=== PATIENT | male | born 1955 | race Caucasian/White ===

== ENCOUNTER → 2020-07-03 14:21 | Outpatient (BNVA) | payer OTHER, SELFPAY | PROVIDERS: Visit Provider Orthopaedic Surgery | DX: Z20.828 Contact with and (suspected) exposure to other viral communicable diseases (principal); L02.511 Cutaneous abscess of right hand; M47.816 Spondylosis without myelopathy or radiculopathy, lumbar region; M25.541 Pain in joints of right hand | CPT/HCPCS: 73130; 87070; 87075; 87077; 87184; 87205; 87635 ==

== ENCOUNTER → 2020-07-03 14:28 | Outpatient (BNVA) | payer SELFPAY | PROVIDERS: Visit Provider Orthopaedic Surgery | DX: Z01.89 Encounter for other specified special examinations (principal) | CPT/HCPCS: 87070; 87075; 87205 ==

== ENCOUNTER 2020-07-04 10:01 | Day surgery (SDC) | payer SELFPAY ==
[2020-07-03 17:53] VITALS: BMI 31.1
[2020-07-04] VITALS (9 sets, daily range): BP systolic 116–138; BP diastolic 76–87; PULSE 77–86; RESP 16–18; TEMP 36.4–37.1; O2SAT 96–99
--- NOTE | 2020-07-04 10:42 | ANES.PREANE2 ---
Pre-Anesthetic Assessment Pre-Anesthetic Assessment: Height/Weight: Height 1.88 m Weight 110.223 kg Preop Diagnosis: Abcess right thumb Proposed Procedure: Operation Date: 07/04/20 12:10 Proposed Procedures p Incision & Drainage of finger abscess, complicated 83518 L02.511(Not Applicable) - Frank Florian MD Familial anesthetic complications: trouble waking up Was Beta Sarah taken within 24 hours: N/A Last intake: Intake Last Liquid Date 07/03/20 Last Liquid Time 21:00 Last Solid Date 07/03/20 Last Solid Time 21:00 Social: Social History: No alcohol and No tobacco Exam: Pre-Anes Outpt Exam: alert, oriented x 3, clear to auscultation bilaterally and regular rate & rhythm Airway: Cervical ROM: WNL MP: 1 Dentition: Full Anesthetic Plan: ASA status: 1 Anesthesia: General Risk of > 500 ml blood loss (7ml/kg in children): No PFSH Anesthesia PFSH: Social History Smoking and tobacco status: never smoked Second hand smoke exposure: No Smoking risk assessment/counseling performed?: No Alcohol intake: never Desire information about alcohol rehabilitation?: No Counseling given: No Desire information about substance/drug rehabilitation?: No Counseling given: No Adopted: No Caregiver/support person: No Lives independently: Yes Household members: spouse Housing: House Marital status: Number of children: 4 Highest education level completed: Associate Degree: Occupational, Technical, Vocational Program service: No Current occupational status: retired Data Anesthesia Cardiac Studies: No Data to Display
[2020-07-04] MEDS: fentaNYL 50 mcg/mL INJ 2mL 25 MCG IVP (15:13)
--- NOTE | 2020-07-04 15:16 | W.PM.OPSUD ---
Surgery/Procedure H&P Update DATE OF PROCEDURE: July 04, 2020 DATE H&P PERFORMED: 07/03/20 PREOP DIAGNOSIS: Abcess right thumb PLANNED PROCEDURE: Operation Date: 07/04/20 12:10 Proposed Procedures p Incision & Drainage of finger abscess, complicated 17010 L02.511(Not Applicable) - Frank Florian MD
--- NOTE | 2020-07-04 18:11 | P.OP_ITS ---
Operative Report Date of procedure: July 04, 2020 Pre-op Diagnosis: Abcess right thumb Post-op diagnosis: same Post-op Findings: Patient had abscess beneath the right thumbnail extending under his proximal right nail fold. He had exposed distal phalanx over the dorsal ulnar nailbed Procedure Done: Irrigation and debridement deep abscess right thumb Pathology: none sent Pathology: Routine and anaerobic cultures of apparently material from the nailbed were sent Surgeon: Frank Florian Anesthesia: General Estimated blood loss (mL): 2 Complications: None Findings: The patient was noted to have a necrotic abscess beneath the nail of his right thumb extension proximally under the nail fold. He had area of full- thickness loss of the dorsal ulnar nailbed with exposed dorsal bone Procedure: The patient was taken to the operating room and given a general anesthesia. His right upper extremity was prepped and draped in the usual fashion. Initially the nail was examined revealing abrasion between an underlying nailbed and expressible pus beneath the nail. Utilizing hemostat the nail was easily elevated off the bed and removed from the proximal nail fold. Cultures of the deep abscess were obtained. The area of the nailbed and beneath the proximal nail fold were debrided with saline and antibiotic solution. They were then dressed with Neosporin 4 x 4's and a compressive Gene wrap. He was extubated taken recovery room in stable condition.
[2020-07-04] MEDS: fentaNYL 50 mcg/mL INJ 2mL IVP ×2 (18:17→18:22)
[2020-07-04] MEDS: neomycin-poly-bacitracin oint 28 gm 1 APPLIC TOPICAL (18:23)
--- NOTE | 2020-07-04 19:03 | ANE.PACU2 ---
Inpatient post-anesthesia follow up: Airway intact: Yes Vital signs: Temperature 98.7 F Pulse Rate 82 Respiratory Rate 18 Blood Pressure 127/87 Pulse Oximetry 98 Oxygen Delivery Me thod Room Air Oxygen Flow Rate 8 Fraction of Inspir ed Oxygen Hydration adequate: Yes Nausea and vomiting: No Pain level: 4 Mental status: Baseline
== END 2020-07-04 19:07 | disposition home or self-care (01) ==
PROVIDERS: Visit Provider Orthopaedic Surgery
PROC: (CPT 10060; principal; 2020-07-04 12:00)
DX: L02.511 Cutaneous abscess of right hand (principal)
CPT/HCPCS: 10060; 12345; 87070; 87075; 87077; 87186; 87205; J0131; J0330; J1580; J2405; J2704; J2765; J3010; J3490

== ENCOUNTER → 2021-07-31 11:46 | Outpatient (BNVA) | payer MEDICARE, SELFPAY | PROVIDERS: Visit Provider Nurse Practitioner Family | DX: J06.9 Acute upper respiratory infection, unspecified (principal); Z20.828 Contact with and (suspected) exposure to other viral communicable diseases; R05.9 Cough, unspecified | CPT/HCPCS: 87400; 87635 ==

== ENCOUNTER 2021-08-05 20:00 | Outpatient (CLI) | payer MEDICARE, SELFPAY | END 2021-08-05 20:01 | disposition home or self-care (01) | LOC: SLEEP 08-06 08:37 | PROVIDERS: Visit Provider Internal Medicine | DX: G47.10 Hypersomnia, unspecified (principal); R53.83 Other fatigue; R06.83 Snoring; G47.33 Obstructive sleep apnea (adult) (pediatric) | CPT/HCPCS: 95810 ==

== ENCOUNTER 2021-10-27 20:00 | Outpatient (CLI) | payer MEDICARE, SELFPAY | END 2021-10-27 20:01 | disposition home or self-care (01) | LOC: SLEEP 10-28 02:35 | PROVIDERS: Visit Provider Internal Medicine | DX: G47.33 Obstructive sleep apnea (adult) (pediatric) (principal) | CPT/HCPCS: 95811 ==

== ENCOUNTER → 2022-06-29 08:46 | Outpatient (BNVA) | payer MEDICARE, OTHER, SELFPAY | PROVIDERS: PCP Internal Medicine; Visit Provider Nurse Practitioner Family | DX: J02.9 Acute pharyngitis, unspecified (principal); J03.00 Acute streptococcal tonsillitis, unspecified | CPT/HCPCS: 87880 ==

== ENCOUNTER → 2022-12-02 13:12 | Outpatient (BNVA) | payer MEDICARE, OTHER, SELFPAY | PROVIDERS: PCP Internal Medicine; Visit Provider Nurse Practitioner Family | DX: R30.0 Dysuria (principal) | CPT/HCPCS: 81000 ==

== ENCOUNTER → 2022-12-09 11:02 | Outpatient (BNVA) | payer MEDICARE, OTHER, SELFPAY | PROVIDERS: PCP Internal Medicine; Visit Provider Nurse Practitioner Family | DX: N39.0 Urinary tract infection, site not specified (principal) | CPT/HCPCS: 81000 ==

== ENCOUNTER 2022-12-31 08:28 | Outpatient (CLI) | payer MEDICARE, OTHER, SELFPAY ==
[2022-12-31] MEDS: iohexol 350 mg/mL 500 mL Btl (per mL) PO (09:15)
[2022-12-31] MEDS: iohexol 350 mg/mL 500 mL Btl (per mL) IV (09:15)
--- NOTE | 2022-12-31 10:00 | CT_ITS ---
WS: [id number] CT ABDOMEN AND PELVIS WITH CONTRAST HISTORY: R35.1 - Nocturia TECHNIQUE: Imaging performed of the abdomen and pelvis with IV contrast. Single phase imaging of the abdomen. Coronal and sagittal reformats are submitted. All CT scans at [facility] use at [address] one of these dose optimization techniques: automated exposure control; mA and/or kV adjustment per patient size (includes targeted exams where dose is matched to clinical indication); or iterative re construction. IV CONTRAST: Omnipaque 350; 100 mL IV. Oral contrast: Yes. DLP: 758.99 mGy.cm COMPARISON: None available. Lower thorax: Micronodule subpleural LEFT lower lobe. No mass or pneumonia. Heart is normal size. Ext ensive contiguous calcifications in the LEFT anterior descending and circumflex coronary artery. No h iatal hernia. Liver/biliary system: Normal size with no intrahepatic dilatation. Indeterminate 3 mm low-attenuation nodule RIGHT lobe of the liver. No intrahepatic dilatation. Gallbladder: Normal. No gallstones or wall thickening. No pericholecystic fluid. Pancreas: Normal size pancreas and pancreatic duct. No adjacent inflammation. Spleen: Normal size spleen. No mass or infarct. Adrenal glands: Normal. Right kidney: Normal size kidney. 5 mm low-attenuation cortical mass is too small to characterize. Ad ditional 13 mm posterior cortical mass is probably a small cyst. No obstruction. Left kidney: Normal. Aorta: Normal. Lymphadenopathy: None. Free fluid: None. GI tract: Normally distended stomach. No small bowel obstruction. No colonic mass. No appendicitis. N ormal appendix. Mild diverticular burden in the distal colon. Abdominal wall: Unremarkable abdominal wall. No hernia. Pelvis: No free fluid or adenopathy within the pelvis. Prostate gland is very mildly enlarged. Flakito us central prostate gland calcifications. Bones: Moderate degenerative disc space narrowing at L4-5. CT/CT abdomen pelvis w con* [id number] IMPRESSION: 1. No acute abdominal or pelvic abnormalities. 2. Negative urinary bladder. 3. Mild prostate gland enlargement with central calcifications. 4. Mild distal colonic diverticular disease without acute diverticulitis. 5. Small low-attenuation lesions in the RIGHT kidney are probably cysts. Too s mall to completely characterize. 6. Normal appendix.
== END 2022-12-31 08:29 | disposition home or self-care (01) ==
LOC: RAD 08:32
PROVIDERS: PCP Internal Medicine; Visit Provider Nurse Practitioner Family
DX: R10.2 Pelvic and perineal pain (principal); R31.9 Hematuria, unspecified; R35.0 Frequency of micturition; R35.1 Nocturia; N40.0 Benign prostatic hyperplasia without lower urinary tract symptoms; K57.30 Diverticulosis of large intestine without perforation or abscess without bleeding
CPT/HCPCS: 74177; 80053; 81000; 84153; 85025; Q9967

== ENCOUNTER → 2023-04-28 07:56 | Outpatient (BNVA) | payer MEDICARE, OTHER, SELFPAY | PROVIDERS: PCP Internal Medicine; Visit Provider Nurse Practitioner Family | DX: R39.9 Unspecified symptoms and signs involving the genitourinary system (principal); N30.01 Acute cystitis with hematuria; K21.9 Gastro-esophageal reflux disease without esophagitis | CPT/HCPCS: 81000 ==

== ENCOUNTER → 2023-05-06 08:24 | Outpatient (BNVA) | payer MEDICARE, OTHER, SELFPAY | PROVIDERS: PCP Internal Medicine; Visit Provider Nurse Practitioner Family | DX: R30.0 Dysuria (principal); N40.0 Benign prostatic hyperplasia without lower urinary tract symptoms; R31.9 Hematuria, unspecified; R35.1 Nocturia; R35.0 Frequency of micturition | CPT/HCPCS: 81000 ==